=== PATIENT | male | born 1955 | race Caucasian/White ===

== ENCOUNTER 2017-04-08 08:50 | Day surgery (SDC) | payer OTHER ==
[2017-04-08] MEDS ORDERED: Metoclopramide 10 MG/2 ML SDV IV PRN (09:16)
[2017-04-08] MEDS ORDERED: Sodium Chloride 0.9% 1,000 ML IV SCH (09:30)
[2017-04-08] MEDS ORDERED: fentaNYL 250 MCG/5 ML SDV ONE (10:25)
[2017-04-08] MEDS ORDERED: Propofol 1,000 MG/100 ML SDV ONE (10:25)
--- NOTE | 2017-04-08 15:31 | OR ---
DATE OF OPERATION: 04/08/2017 PREOPERATIVE DIAGNOSIS: Screening for colon cancer. POSTOPERATIVE DIAGNOSIS: Screening for colon cancer. ANESTHESIA: MAC. COMPLICATIONS: None. ESTIMATED BLOOD LOSS: None. INDICATIONS FOR THE PROCEDURE: The patient is a 61-year-old male, who is here for screening colonoscopy. His last colonoscopy was 7 to 8 years ago. Unsure of the findings at that time. The patient has otherwise had no change in bowel habits. No blood in the stool. He has otherwise been doing well. DESCRIPTION OF PROCEDURE: Informed consent was obtained from the patient. The patient was taken to the operating room and placed on the table in the left lateral decubitus position. Monitored anesthesia care was applied. Digital rectal exam revealed no rectal masses. Good rectal tone. The patient did have several firm anal margin superficial skin lesions which were noted. Colonoscope was then passed through the anus and directed towards the cecum. Cecum was identified by appendiceal orifice and ileocecal valve. The colonoscope was then slowly removed. Prep was good. Views were good. No masses. No polyps. No AV malformations. No areas of ischemia or inflammation were identified. The patient did have moderate diverticulosis in the sigmoid and descending colon. Retroflexion was performed in the rectum which was unremarkable. Colonoscope was then withdrawn. The patient tolerated the procedure well and was brought to the recovery room in good condition. FINDINGS: Moderate diverticulosis in the sigmoid and descending colons. Anal margin skin lesions. RECOMMENDATIONS: Would recommend repeat colonoscopy in 10 years. I would also recommend excisional biopsy of anal margin skin lesions. FAUSTO /[id number]
== END 2017-04-08 11:40 | disposition home or self-care (01) ==
LOC: LB.SDS 08:50
PROVIDERS: ATTEND Surgery
DX: Z12.11 Encounter for screening for malignant neoplasm of colon (principal); K57.30 Diverticulosis of large intestine without perforation or abscess without bleeding; I10 Essential (primary) hypertension; E66.9 Obesity, unspecified; Z79.899 Other long term (current) drug therapy; Z68.33 Body mass index [BMI] 33.0-33.9, adult
CPT/HCPCS: 45378; J3010; J7040; J3490